=== PATIENT | male | born 1965 | race Caucasian/White ===

== ENCOUNTER 2016-03-25 06:30 | Emergency (ER) | payer OTHER ==
[~2016-03-25] VITALS: Ht 170.2 cm; Wt 81.0 kg
[2016-03-25 07:04] VITALS: Ht 170.2 cm; Wt 81.0 kg
[2016-03-25] MEDS ORDERED: morphine 4 MG/ML VIAL IV STA ×2 (07:22→09:28)
[2016-03-25] MEDS ORDERED: SOD CHLORIDE 0.9% 1,000 ML IV STA (07:22)
[2016-03-25] MEDS ORDERED: NITROGLYCERIN 2% 1 GM OINT PKT TD STA (07:22)
[2016-03-25] MEDS ORDERED: ASPIRIN 325 MG TAB PO STA (07:22)
[2016-03-25] MEDS ORDERED: ONDANSETRON 4 MG INJ IV STA ×2 (07:22→12:57)
--- NOTE | 2016-03-25 08:10 | RADRPT ---
PROCEDURE: XR Chest. CLINICAL INDICATION: Chest pain TECHNIQUE: Single frontal chest x-ray. COMPARISON: 11/06/2015 FINDINGS: The lungs are adequately expanded and clear. There is no focal consolidation, pleural effusion, or pneumothorax. The heart and mediastinal contours are unremarkable. Bones are unremarkable. No acu te fractures are present. RPTAT: EE IMPRESSION: No acute cardiopulmonary abnormality. .Gely Dietrich MD, MD Date Time Electronically viewed and signed by .Gely Dietrich MD, on 03/25/2016 08:13 .T/
[2016-03-25 08:24] LABS: CHLORIDE 101 mmol/L (97-110)
[2016-03-25 08:24] LABS: INR 0.91; PROTIME 12.3 Sec (12.2-14.2)
[2016-03-25 08:25] LABS: ALBUMIN 4.6 g/dl (3.3-4.9); POTASSIUM 4.2 mmol/L (3.5-5.1); SODIUM 143 mmol/L (135-144)
[2016-03-25 08:27] LABS: BILIRUBIN,INDIRECT 0.4 mg/dl (0-1.1); BILIRUBIN,TOTAL 0.4 mg/dl (0.2-1.3); CREATININE 0.69 mg/dl (0.61-1.24)
[2016-03-25 08:28] LABS: ALANINE AMINOTRANSFERASE 43 IU/L (13-69); ALBUMIN/GLOBULIN RATIO 1.35; ALKALINE PHOSPHATASE 59 IU/L (42-121); ANION GAP 17 (8-16); ASPARTATE AMINO TRANSFERASE 27 IU/L (15-46); BLOOD UREA NITROGEN 14 mg/dl (7-20); CALCIUM 9.1 mg/dl (8.4-10.2); CARBON DIOXIDE 29 mmol/L (21-31); GLUCOSE 216 mg/dl (70-220)
[2016-03-25 08:41] LABS: HEMATOCRIT 43.2 % (42.0-52.0); HEMOGLOBIN 14.5 g/dl (14.0-18.0); MEAN CORPUSCULAR HEMOGLOBIN 25.2 pg (29.0-33.0); MEAN CORPUSCULAR HGB CONC 33.5 g/dl (32.0-37.0); MEAN CORPUSCULAR VOLUME 75.1 fl (82.0-101.0); MEAN PLATELET VOLUME 10.3 fl (7.4-10.4); PLATELET COUNT 109 10^3/UL (140-440); RED BLOOD COUNT 5.76 10^6/ul (4.70-6.10); RED CELL DISTRIBUTION WIDTH 14.1 % (11.5-14.5); WHITE BLOOD COUNT 3.6 10^3/ul (4.8-10.8)
[2016-03-25 08:46] LABS: CONDITION 1; LH ANALYZER COMMENTS 1; SUSPECT 1; TROPONIN-I < 0.012 ng/ml (0.00-0.12); UNCORRECTED WBC 5.2 10^3/ul (4.8-10.8)
[2016-03-25 10:09] LABS: EOSINOPHILS # 0.2 10^3/ul (0.0-0.5); LYMPHOCYTES # 0.5 10^3/ul (0.8-2.9); MONOCYTE # 0.4 10^3/ul (0.3-0.9); NEUTROPHIL # 2.4 10^3/ul (1.6-7.5)
[2016-03-25 10:10] LABS: HYPOCHROMASIA 2+; MICROCYTOSIS 2+
--- NOTE | 2016-03-25 10:51 | CONS ---
Date/Time of Note Date/Time of Note DATE: 03/25/16 TIME: 10:36 Assessment/Plan Assessment/Plan Chief Complaint/Hosp Course 50 year old male with a PMH of CAD s/p NSTEMI with PCI, pre-DM, and ongoing tobacco use who presents with chest pain. There are typical and atypical features to his pain. The typical features include the distribution, improvement with NTG in a patient with multiple risk factors including recent NSTEMI. Atypical features include if the pain truly has lasted from yesterday until today (this would make it unlikely to be cardiac pain given the negative first troponin), worsening with movement of extremities, and the difference between his current pain and his previous NSTEMI pain. My concern is that potentially the pain that he had this morning was different from his previous pain and that his first negative troponin would not rule out ischemia. He should have a second troponin around 1500 or 1600 and if negative he can likely be discharged with outpatient cardiology follow up and consideration for stress test. Problems: Additional Assessment/Plan 1. Chest pain - as noted above, atypical and typical features. Given concern for pain, he should have a second troponin this afternoon and if it remains negative he can likely be followed up as an outpatient with outpatient stress testing. Differential in the setting of noncardiac pain would be aortic dissection (given radiation from front to back), musculoskeletal/costochondritis , and GI pain. -second troponin at roughly 1500 or 1600. If negative can likely be d/c to home pending further evaluation for chest/back pain. -ensure patient receive ASA 81mg and plavix 75mg daily. -prn NTG and morphine for pain. -may consider additional evaluation/imaging for back pain. 2. Coronary artery disease s/p PCI -continue ASA 81mg daily, plavix 75mg daily, lipitor 80mg qhs. -would increase imdur to 60mg daily. 3. Tobacco use - counciled on need to stop smoking. Consultation Date/Type/Reason Admit Date/Time Date of Consultation: Mar 25, 2016 Type of Consultation: Cardiology Consult Reason for Consultation Chest pain Hx of Present Illness 50 year old gentleman with a PMH of coronary artery disease s/p PCI 3 months ago , pre-diabetes, and ongoing tobacco use who presents for evaluation of chest pain. The patient notes that the pain started yesterday morning upon waking up. the pain is sharp and radiates from the right side of his chest to his back. The pain is not described as tearing. He notes that the pain is worse in the back. He took advil several times yesterday with complete resolution of the pain yesterday for roughly an hour at around 1500. He notes that this pain is different from his pain that he had during an NSTEMI. The pain recurred in the evening and he again took advil without resolution. He went to sleep from 2200 until roughly 0300 or 0400 this AM with the pain much worse upon waking up. He presented to the ED for evaluation. In the ED he was given NTG with relief from some of his pain for roughly 5 minutes. The pain recurred. He notes that he has had some benefit from morphine while here. We discussed his recent history and he notes that he was started on imdur following his PCI in the setting of ongoing chest pain with some relief in this symptom. He took the imdur yesterday. He had a stress test by report roughly a month ago that he was told was normal. We discussed the atypical nature of his pain, but given that the pain did improve with NTG and recurred this morning at 0400, it would be worthwhile to rule him out for an UT with repeat troponins. We discussed that this may be muscular or other possible etiologies. We discussed that assuming that his troponins are negative he can be discharged to home with plans for cardiology follow up and possible outpatient stress test. Constitutional: no complaints Respiratory: cough Cardiovascular: chest pain Gastrointestinal: pain Skin: no complaints Past Medical History 1. CAD s/p NSTEMI with CM to unknown artery. 2. Pre-DM 3. Ongoing tobacco use. Past Surgical History Previous hernia surgery Family History Significant Family History: no pertinent family hx Social History Smoking Status: Current every day smoker Exam/Review of Systems Vital Signs Vitals Vital Signs Date Time Temp Pulse Resp B/P Pulse Ox O2 Delivery O2 Flow Rate FiO2 03/25/16 09:44 60 18 136/70 100 Room Air 03/25/16 07:50 2 03/25/16 07:04 98.0 Exam Constitutional: alert, oriented, well developed Psych: no complaints Eyes: nl conjunctiva Neck: supple Respiratory: wheezing Cardiovascular: nl pulses, regular rate and rhythm Gastrointestinal: non-tender, soft Extremities: normal pulses Results Result Diagram: 03/25/1673203/25/16732 Results 24 hrs Laboratory Tests Test 03/25/16 07:22 03/25/16 07:33 Activated Partial Thromboplast Time 25.0 INR International Normalized Ratio 0.91 Prothrombin Time 12.3 Prothrombin Time Ratio 1.0 Alanine Aminotransferase (ALT/SGPT) 43 Albumin 4.6 Albumin/Globulin Ratio 1.35 Alkaline Phosphatase 59 Anion Gap 17 H Anisocytosis Aspartate Amino Transf (AST/SGOT) 27 Band Neutrophils % 2.0 Basophils # Basophils % Blood Morphology Comment Blood Urea Nitrogen 14 Calcium Level 9.1 Carbon Dioxide Level 29 Chloride Level 101 Creatinine 0.69 Differential Comment MANUAL DIFF Direct Bilirubin 0.00 Eosinophils # 0.2 Eosinophils % 5.0 Globulin 3.40 H Glucose Level 216 Hematocrit 43.2 Hemoglobin 14.5 Hypochromasia 2+ Indirect Bilirubin 0.4 Large Platelets RARE Lymphocytes # 0.5 L Lymphocytes % 15.0 Mean Corpuscular Hemoglobin 25.2 L Mean Corpuscular Hemoglobin Concent 33.5 Mean Corpuscular Volume 75.1 L Mean Platelet Volume 10.3 Microcytosis 2+ Monocytes # 0.4 Monocytes % 12.0 H Neutrophils # 2.4 Neutrophils % 66.0 Nucleated Red Blood Cells # Nucleated Red Blood Cells % Platelet Count 109 L Potassium Level 4.2 Red Blood Count 5.76 Red Cell Distribution Width 14.1 Sodium Level 143 Total Bilirubin 0.4 Total Protein 8.0 Troponin I < 0.012 White Blood Count 3.6 #L REMINGTON CASTRO MD Mar 25, 2016 10:46
[2016-03-25] MEDS ORDERED: ATOR80TA75 PO (11:00)
[2016-03-25] MEDS ORDERED: CLOP75TA27 PO (11:00)
[2016-03-25] MEDS ORDERED: ASPI-664 PO (11:00)
[2016-03-25] MEDS ORDERED: ISOS30TA5 PO (11:01)
[2016-03-25] MEDS ORDERED: ALBU18HF INHALATION (11:01)
[2016-03-25] MEDS ORDERED: METF-382 PO (11:02)
[2016-03-25] MEDS ORDERED: HYDR-842 PO (11:02)
[2016-03-25] MEDS ORDERED: METO-429 PO (11:02)
[2016-03-25] MEDS ORDERED: NIT4 SL (11:02)
[2016-03-25] MEDS ORDERED: COLC0.6T6 PO (11:03)
[2016-03-25 13:34] LABS: CREATINE KINASE 67 IU/L (23-200)
[2016-03-25 13:48] LABS: CK-MB 1.13 ng/ml (0.0-2.4); TROPONIN-I < 0.012 ng/ml (0.00-0.12)
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
[2016-03-25] MEDS ORDERED: HYDR-906 PO (14:01)
[2016-03-25] MEDS ORDERED: ONDA4TAB8 PO (14:01)
[2016-03-25 14:04] VITALS: BP 143/86; PULSE 73; RESP 17
== END 2016-03-25 14:05 | disposition home or self-care (01) ==
LOC: E/R 06:30
DX: R07.2 Precordial pain (principal); I10 Essential (primary) hypertension; F17.210 Nicotine dependence, cigarettes, uncomplicated; J45.909 Unspecified asthma, uncomplicated; Z79.82 Long term (current) use of aspirin; Z79.84 Long term (current) use of oral hypoglycemic drugs
CPT/HCPCS: 36415; 71010; 80053; 82550; 82553; 84484; 85025; 85610; 85730; 93005; 96374; 96375; 96376; J2270; J2405; J7030; Z7502; Z7610